=== PATIENT | male | born 1985 | race Hispanic/Latino ===

== ENCOUNTER 2019-05-26 08:13 | Emergency (ER) | payer SELFPAY ==
[2019-05-26] MEDS ORDERED: Iopamidol 370 76% 100 ML VIAL ONE (09:00)
[2019-05-26 09:19] LABS: #Basophils 0.1 thou/uL (0.0-0.2); #Eosinphils 0.3 thou/uL (0.0-0.7); #Lymphocytes 2.9 thou/uL (1.20-3.40); #Monocytes 0.8 thou/uL (0.11-0.59); #Neutrophils 4.6 thou/uL (1.40-6.50); %Basophils 1.3 % (0.0-1.0); %Eosinophils 3.8 % (0.0-10.0); %Lymphocytes 33.2 % (21.0-51.0); %Monocytes 9.5 % (0.0-10.0); %Neutrophils 52.1 % (42.0-75.0); Hemoglobin 15.6 g/dL (14.0-18.0); Mean Corpuscular HGB CONC 33.7 g/dL (32.0-36.0); Mean Corpuscular Hemoglobin 29.5 pg (27.0-31.0); Mean Corpuscular Volume 87.4 fL (78.0-98.0); Mean Platelet Volume 7.1 fL (7.4-10.4); Platelet Count 298 thou/uL (130-400); RBC Distribution Width 11.6 % (11.5-14.5); Red Blood Cell (RBC) Count 5.28 mill/uL (4.70-6.10); White Blood Cell (WBC) Count 8.8 thou/uL (4.8-10.8)
[2019-05-26 09:25] LABS: ALT (SGPT) 55 U/L (8-55); AST (SGOT) 26 U/L (5-34); Albumin 4.5 g/dL (3.5-5.0); Alkaline Phosphatase 91 U/L (40-110); Anion Gap 15 mmol/L (10-20); BUN (Urea Nitrogen) 19 mg/dL (8.9-20.6); Bilirubin, Total 0.4 mg/dL (0.2-1.2); Calc. Creatinine Clearance 0 mL/min (70-130); Calcium 9.4 mg/dL (7.8-10.44); Carbon Dioxide 24 mmol/L (22-29); Chloride 103 mmol/L (98-107); Estimated GFR-MDRD 84; Globulin 3.2 g/dL (2.4-3.5); Glucose 133 mg/dL (70-105); Potassium 3.6 mmol/L (3.5-5.1); Protein, Total 7.7 g/dL (6.0-8.3); Sodium 138 mmol/L (136-145)
--- NOTE | 2019-05-26 09:30 | CT ---
CTA Angio Chest W WO Con HISTORY: Chest pain, dyspnea COMPARISON: None. FINDINGS: There is subsegmental atelectatic changes within the lung bases. No pleural effusions. No i nfiltrative process. There is no significant mediastinal or hilar adenopathy. No significant axillary adenopathy. The thor acic aorta is normal in caliber. There is good pulmonary artery opacification, there is no CT evidence for pulmonary embolus. Visualized liver parenchyma shows no focal findings. IMPRESSION: No CT evidence for pulmonary embolus.
--- NOTE | 2019-05-26 09:53 | RAD ---
PORTABLE CHEST 1 VIEW: Date: 05/26/19 Time: 0843 hours HISTORY: Mid sternal pain, left-sided chest pain, and left arm pain. FINDINGS: The heart size is normal. The lungs are expanded without focal areas of consolidation, pneumothoraces , or pleural effusions. IMPRESSION: No radiographic evidence of acute cardiopulmonary process. POS: [facility]
[2019-05-26] MEDS ORDERED: Aspirin Chewable 81 MG TAB ONE (10:15)
[2019-05-26] MEDS ORDERED: Sodium Chloride 0.9% 1,000 ML ONE (10:16)
[2019-05-26] MEDS ORDERED: Ketorolac Tromethamine 30 MG/ML VIAL ONE (11:07)
[2019-05-26] MEDS ORDERED: Acetaminophen 500 MG TAB ONE (11:07)
== END 2019-05-26 12:26 | disposition home or self-care (01) ==
LOC: NAV ERS 08:13
DX: R07.89 Other chest pain (principal); F17.200 Nicotine dependence, unspecified, uncomplicated; Z79.899 Other long term (current) drug therapy
CPT/HCPCS: 71045; 71275; 80053; 84484; 85025; 93005; 96361; 96374; J1885; J7050; Q9967